=== PATIENT | female | born 1965 | race Caucasian/White ===

== ENCOUNTER 2016-11-12 09:14 | Emergency (ER) | payer OTHER ==
[~2016-11-12 09:14] MED LIST: ATORVASTATIN CA20 MG PO; BACLOFEN 10MG T10 MG PO; FEOSOL325 MG PO; LASIX20 MG PO; OMEPRAZOLE40 MG PO; PERCOCET 5/3251 TAB PO; XARELTO10 MG PO; ZYRTEC10 MG PO
== END 2016-11-12 11:00 | disposition home or self-care (01) ==
LOC: FER 09:14
DX: R09.1 Pleurisy (principal)
CPT/HCPCS: 36415; 71010; 84484; 85379; 93005; J1885

== ENCOUNTER → 2017-01-30 | Day surgery (SDC) | payer OTHER | END | disposition home or self-care (01) | LOC: FAS 07:00 | DX: M23.221 Derangement of posterior horn of medial meniscus due to old tear or injury, right knee (principal); M17.11 Unilateral primary osteoarthritis, right knee; M79.4 Hypertrophy of (infrapatellar) fat pad; E03.9 Hypothyroidism, unspecified; R01.1 Cardiac murmur, unspecified; K21.9 Gastro-esophageal reflux disease without esophagitis; K59.00 Constipation, unspecified | CPT/HCPCS: J1100; J1170; J1885; J2270; J2405; J2704; J3010; J7325 ==

== ENCOUNTER 2021-01-19 09:10 | Emergency (ER) | payer OTHER ==
[~2021-01-19 09:10] MED LIST changes: +ALBUTEROL; +AMPHETAMINE SAL20 MG PO; +BENTYL10 MG PO; +BREO ELLIPTA 11 EACH INH; +LOPRESSOR25 MG PO; +MONTELUKAST SOD10 MG PO; +NORCO 5-325 TA1 EACH PO; +OMEPRAZOLE 20MG20 MG PO; +PERCOCET 5-3251 EACH PO; +TOPAMAX50 MG PO; +TOPIRAMATE50 MG PO; +ZOFRAN4 MG PO
[2021-01-19 10:06] LABS: BASOPHIL 0.8 % (0-2); EOSINOPHIL 1.4 % (0-5); HCT 43.5 % (37.0-47.0); LYMPHOCYTE 27.4 % (15-48); MCH 27.7 pg (25.0-31.0); MCHC 32.2 g/dL (32.0-36.0); MONOCYTE 5.5 % (0-12); MPV 9.4 fL (6.0-9.5); NEUTROPHIL 64.7 % (41-80); NRBC 0; PLT 291 K/uL (150-400); RBC 5.06 M/uL (4.20-5.40); RDW 13.3 % (11.5-14.0); WBC 8.3 K/uL (4.0-10.5)
[2021-01-19 10:32] LABS: ALBUMIN 3.9 g/dL (3.4-5.0); BILIRUBIN - TOTAL 0.4 mg/dL (0.2-1.0); BUN/CREAT RATIO (CALC) 17.1 RATIO; CREATININE 0.82 mg/dL (0.51-0.95); GLOBULIN (CALCULATION) 3.8 g/dL; POTASSIUM 4.6 mmol/L (3.5-5.1); TOTAL PROTEIN 7.7 g/dL (6.4-8.2)
== END 2021-01-19 11:27 | disposition home or self-care (01) ==
LOC: FER 09:10
PROVIDERS: Emergency Medicine
DX: R20.2 Paresthesia of skin (principal)
CPT/HCPCS: 36415; 70450; 70551; 80053; 84484; 85025; 93005